=== PATIENT | male | born 1965 | race African-American/Black ===

== ENCOUNTER 2017-08-20 09:29 | Emergency (ER) | payer BC ==
[~2017-08-20] VITALS: Ht 175.3 cm; Wt 79.2 kg
[2017-08-20 09:33] VITALS: BP 158/100; PULSE 71; TEMP 36.8; O2SAT 100; Ht 175.3 cm; Wt 79.2 kg
[2017-08-20] MEDS ORDERED: CIPROFLOXACIN 500 MG TAB PO STA (09:51)
[2017-08-20] MEDS ORDERED: CIPR-255 PO (09:55)
[2017-08-20 09:59] LABS: URINE APPEARANCE CLEAR (CLEAR); URINE BILIRUBIN NEG (NEG); URINE COLOR YELLOW; URINE NITRITE NEG (NEG); URINE PH 7.5 (4.5-7.5); URINE SPECIFIC GRAVITY 1.006 (1.000-1.030); UROBILINOGEN NEG (NEG)
[2017-08-20 10:07] LABS: MANUAL MICROSCOPIC REQUIRED? NO; REVIEW REQ? NO
--- NOTE | 2017-08-20 18:22 | EMERGENCY ROOM VISIT NOTE ---
History Report prepared by Yris: Cristel Espino Under the Supervision of: Dr. Tyrel Becerril M.D. First contact with patient: 09:35 Chief Complaint: URINARY SYMPTOMS Stated Complaint: TINGLING AND DISCOMFORT OF PENIS History of Present Illness The patient is a 52 year old male who presents to the Emergency Room with complaints of an episode of urinary symptoms starting five days ago. The patient states that he has had this before when he had a UTI a while ago. He states that he was treated with Cipro for 5 days. He reports that it is not too bad right now, but states that it feels the same it did before his prior UTI took off. He describes the feeling as a tingling feeling at the tip of his penis. The patient complains of the tip of his urethra being inflamed. Pt denies LOC, headache, fevers, chills, diaphoresis, visual changes, neck pain , chest pain, breathing difficulties, nausea, vomiting, abdominal pain, back pain, melena, hematochezia, numbness, weakness, lymphadenopathy, feeling achy, or other complaints. Source of History: patient Onset: five days ago Position: other (global) Quality: tingling Timing: other (episode) Note: The patient complains of the tip of his urethra being inflamed. Review of Systems See HPI for pertinent positives and negatives. A total of ten systems were reviewed and were otherwise negative. Past Medical & Surgical Medical Problems: (1) UTI (urinary tract infection) Family History No pertinent family history Social History Smoking Status: Never Smoker Drug Use: none Marital Status: in relationship Housing Status: lives with significant other Occupation Status: employed Current/Historical Medications Scheduled Ciprofloxacin Hcl (Cipro), 500 MG PO BID Allergies Coded Allergies: No Known Allergies (Unverified , 08/20/17) Physical Exam Vital Signs Date Time Temp Pulse Resp B/P (MAP) Pulse Ox O2 Delivery O2 Flow Rate FiO2 08/20/17 09:33 36.8 71 18 158/100 100 Room Air Physical Exam GENERAL: Awake, alert, well-appearing, in no distress HENT: Normocephalic, atraumatic. Oropharynx unremarkable. EYES: Normal conjunctiva. Sclera non-icteric. NECK: Supple. No nuchal rigidity. FROM. No JVD. RESPIRATORY: Clear to auscultation. CARDIAC: Regular rate, normal rhythm. Extremities warm and well perfused. Pulses equal. ABDOMEN: Soft, non-distended. No tenderness to palpation. No rebound or guarding. No masses. : Normal male. No discharge. No wounds or ulcerations. MUSCULOSKELETAL: Chest examination reveals no tenderness. The back is symmetrical on inspection without obvious abnormality. There is no CVA tenderness to palpation. No joint edema. NEURO: Normal sensorium. No sensory or motor deficits noted. SKIN: No rash or jaundice noted. Medical Decision & Procedures Laboratory Results Test 08/20/17 09:40 Urine Color YELLOW Urine Appearance CLEAR (CLEAR) Urine pH 7.5 (4.5-7.5) Urine Specific [place] 1.006 (1.000-1.030) Urine Protein NEG (NEG) Urine Glucose (UA) NEG (NEG) Urine Ketones NEG (NEG) Urine Occult Blood NEG (NEG) Urine Nitrite NEG (NEG) Urine Bilirubin NEG (NEG) Urine Urobilinogen NEG (NEG) Urine Leukocyte Esterase NEG (NEG) Laboratory results reviewed by me Medications Administered Medications (Trade) Dose Ordered Sig/Frank Route Start Time Stop Time Status Last Admin Dose Admin Ciprofloxacin (Cipro Tab) 500 mg NOW STAT PO 08/20/17 09:51 08/20/17 09:53 DC 08/20/17 10:12 500 MG ED Course 0940: The patient was evaluated in room A10. A complete history and physical exam was performed. Discussed results and discharge instructions: He verbalized understanding and agreement. The patient is ready for discharge. 0951: Ordered Cipro Tab 500 mg PO. Medical Decision Triage Nursing notes reviewed. The patient's presentation and history were concerning for dysuria symptoms. Etiologies such as UTI, urethritis, mechanical trauma, viral infection, renal colic , as well as others were entertained. The patient was evaluated. Physical examination was unremarkable. Urinalysis was unremarkable as well. The patient states he has been in a stable relationship. There is no clinical findings concerning for STI. He has had a similar issues in the past and was diagnosed with a Citrobacter UTI. Given this a urine culture was sent. I will start him on Cipro. If he worsens he will come back. He did have elevated blood pressure measurements and was referred to find primary care. The patient was offered information on primary care physician states he will set that up on his own. If he worsens in any way , he will be back. By the evaluation outlined above other emergent etiologies such as those listed in the differential, as well as others, were deemed relatively unlikely. The patient was educated about the findings as listed above. All questions were answered and the patient was pleased with the treatment. Return instructions were outlined and the patient was discharged in stable condition. Medication Reconcilliation Current Medication List: was personally reviewed by me Blood Pressure Screening Patient's blood pressure: Elevated blood pressure Blood pressure disposition: Referred to PCP Impression Primary Impression: Dysuria Additional Impression: Symptoms involving urinary system Scribe Attestation The scribe's documentation has been prepared under my direction and personally reviewed by me in its entirety. I confirm that the note above accurately reflects all work, treatment, procedures, and medical decision making performed by me. Departure Information Dispostion Home / Self-Care Prescriptions Ciprofloxacin Hcl (CIPRO) 500 Mg Tab 500 MG PO BID, #9 TAB Prov: Tyrel Becerril MD 08/20/17 Referrals No Doctor, Assigned (PCP) Forms HOME CARE DOCUMENTATION FORM, IMPORTANT VISIT INFORMATION Patient Instructions [facility] Additional Instructions Ciprofloxacin(Cipro) 500mg: Take one pill twice daily for 5 days. All antibiotics can cause diarrhea. If this occurs and you feel worse or it does not resolve in 1-2 days follow up with your doctor or return to the Emergency Department as this could be signs of serious underlying problems. If you experience any pain in your tendons or any tendon injury return to the ER for re -evaluation. Any medication can cause an allergic reaction, stop the pills immediately and return to the ER for rash, hives, breathing difficulties, or swelling. Ibuprofen(Motrin, Advil) may be used for fever or pain. Use 600mg every six hours as needed. Take with food. Avoid using more than 2400mg in a 24 hour period. Do not use 2400mg per day for more than three consecutive days without physician direction. Prolonged inappropriate use can lead to stomach upset or ulcers. (AND/OR) Acetaminophen(Tylenol) may be used for fever or pain. Use 1000mg every six hours as needed. Avoid using more than 4000mg in a 24 hour period. Rest and drink plenty of fluids. Continue current medications. Return to the ER immediately for worsening or persistent abdominal pain, vomiting, fevers, back or flank pain, worsening of your condition, or as needed. Follow up with a primary physician next week to establish care and for a recheck of the current condition. Her blood pressure was elevated and needs to be rechecked because of your family history and long-term negative effects of untreated hypertension. Problem Qualifiers
== END 2017-08-20 10:19 | disposition home or self-care (01) ==
LOC: C.EDB 09:31 → C.EDA 10:19
DX: R30.0 Dysuria (principal); R03.0 Elevated blood-pressure reading, without diagnosis of hypertension